=== PATIENT | male | born 1965 | race Caucasian/White ===

== ENCOUNTER 2021-02-09 | Emergency (ER) | payer BC ==
--- NOTE | 2021-02-09 18:06 | ED Physician Documentation ---
History of Present Illness - Stated complaint Stated Complaint: RASH - Chief complaint Chief Complaint: General - Additonal information Additional information: 55-year-old male presents emergency department for evaluation of a rash on his left lower bicep dorsum of the arm that began 5 days ago. This was preceded by a dog scratch about 10 days ago. He reports that he thought nothing of the dog scratch but then 5 days ago he began noticing tiny little red bumps developing around the scratch. He has some pruritus associated with this. He has placed Neosporin ointment without relief of the rash. It is not painful it is nonvesicular. There are some areas of the rash which have begun to crust and scab over. Review of Systems Constitutional: reports: Reviewed and negative Eyes: reports: Reviewed and negative Ears: reports: Reviewed and negative Nose: reports: Reviewed and negative Throat: reports: Reviewed and negative Cardiac: reports: Reviewed and negative Respiratory: reports: Reviewed and negative GI: reports: Reviewed and negative : reports: Reviewed and negative Skin: reports: Rash (left lower bicep/AC) Musculoskeletal: reports: Reviewed and negative Neurologic: denies: Generalized weakness, Focal weakness, Numbness, Difficulty speaking, Near syncope, Syncope, Seizure, Confused, Altered mental status, Unresponsive, Headache, Head injury, LOC, Reviewed and negative, Other Psychiatric: reports: Reviewed and negative Endocrine: reports: Reviewed and negative PD PAST MEDICAL HISTORY - Past Medical History Past Medical History: Yes Cardiovascular: None Respiratory: None Neuro: None Endocrine/Autoimmune: None GI: None : None HEENT: None Psych: None Musculoskeletal: None Derm: None - Past Surgical History Past Surgical History: No - Present Medications Home Medications: Ambulatory Orders Medication Instructions Recorded Confirmed cephALEXin [Keflex] 500 mg PO Q6H #28 02/09/21 - Allergies Allergies/Adverse Reactions: Allergies Allergy/AdvReac Type Severity Reaction Status Date / Time iodine Allergy Hives Verified 02/09/21 17:09 - Social History Does the pt smoke?: No Smoking Status: Never smoker Does the pt drink ETOH?: No Does the pt have substance abuse?: Yes - Immunizations Immunizations are current?: Yes - POLST Patient has POLST: No PD ED PE EXPANDED - General General: Alert, No acute distress - Extremities Extremities: Other (healing dog dractch 4 cm left lower bicep. Surrounded by multiple small papules, non vesicular that are centered on hair follicles. Some sores are scabbing over ) Results - Vitals Vitals: Vital Signs - 24 hr 02/09/21 17:05 Temperature 36.6 C Heart Rate 75 Respiratory 15 Rate Blood Pressure 139/93 H O2 Saturation 99 Oxygen O2 Source Room air PD MEDICAL DECISION MAKING - ED course Complexity details: reviewed results, re-evaluated patient, d/w patient ED course: 55-year-old male presents the emergency department for evaluation of a rash on his left lower bicep that began 5 days ago. It is papular and in some areas of scabbing over. Rash is not consistent with a shingles reaction. In addition to that he does have Zoster vaccine up-to-date. Given that this rash developed about a week after a dog scratch I do suspect that he may have a early or atypi eugene presentation for impetigo. The rash has failed to improve with typical outpatient treatment for impetigo such as Neosporin. Therefore I will start him on a short course of cephalexin. He is to return to the emergency department if his symptoms are worsening. Also recommend continuation of the Neosporin as well as warm compress. Departure - Departure Disposition: 01 Home, Self Care Clinical Impression: Rash, Impetigo Condition: Stable Record reviewed to determine appropriate education?: Yes Prescriptions: cephALEXin [Keflex] 500 mg PO Q6H #28 Comments: Kvng you were seen in the emergency department today for a rash on your left bicep. As we discussed I am not certain that the rash is fungal but because it developed after your dog scratched you I am concerned that it may be a bacterial infection or an atypical presentation for impetigo. Please fill the prescription for the antibiotics and begin taking as directed. I would like you to continue to place the antibiotic ointment over this rash as well as a warm compress 3 times a day. With a bacterial skin infection I would expect the rash to be improving over the next 48 to 72 hours. If worsening then please return immediately to the emergency department for a second evaluation.
== END 2021-02-09 18:27 | disposition home or self-care (01) ==
CPT/HCPCS: 99282; 99283

== ENCOUNTER 2021-04-28 11:38 | Outpatient (CLI) | payer BC | END 2021-04-28 11:39 | disposition short-term general hospital (02) | LOC: EMS 11:38 | DX: R42 Dizziness and giddiness (principal); R06.02 Shortness of breath | CPT/HCPCS: A0425; A0427 ==

== ENCOUNTER 2023-04-24 18:32 | Emergency (ER) | payer BC ==
[2023-04-24 18:40] VITALS: BP 125/87
--- NOTE | 2023-04-24 19:52 | ED Physician Documentation ---
PD HPI SKIN - Stated complaint Stated Complaint: ITCHY/BUMPS ON JAW - Chief complaint Chief Complaint: Wound - History obtained from History obtained from: Patient - Additional information Additional information: 57-year-old male presents for rash on his left jaw. He states that he had a shave biopsy of a lesion performed earlier this week. He noticed some itching and stinging in the area as well as some blistering lesions. He has tried placing Neosporin on the wound but it does not appear to be getting better and so he presented for evaluation. Denies fevers, chills, other complaints Review of Systems Constitutional: denies: Fever, Chills Skin: reports: Rash. denies: Lesions PD PAST MEDICAL HISTORY - Past Medical History Cardiovascular: None Respiratory: None Neuro: None Endocrine/Autoimmune: None GI: None : None HEENT: None Psych: None Musculoskeletal: None Derm: None - Past Surgical History Past Surgical History: No - Present Medications Home Medications: Ambulatory Orders Medication Instructions Recorded Confirmed Mupirocin 2% Oint [Bactroban 2% 1 applic TOP TID 5 Days #22 gm 04/24/23 Oint] - Allergies Allergies/Adverse Reactions: Allergies Allergy/AdvReac Type Severity Reaction Status Date / Time iodine Allergy Hives Verified 04/24/23 18:37 - Social History Does the pt smoke?: No Smoking Status: Never smoker Does the pt drink ETOH?: No Does the pt have substance abuse?: Yes - Immunizations Immunizations are current?: Yes - POLST Patient has POLST: No PD ED PE NORMAL - Vitals Vital signs reviewed: Yes - General General: Alert and oriented X 3, No acute distress, Well developed/nourished - HEENT HEENT: Atraumatic - Neck Neck: Supple, no meningeal sign - Cardiac Cardiac: RRR, Strong equal pulses - Respiratory Respiratory: No respiratory distress - Abdomen Abdomen: Soft, Non tender, Non distended - Derm Derm: Normal color, Warm and dry, Other (small honey-crust rash on L mandible) - Extremities Extremities: No deformity, No tenderness to palpate, Normal ROM s pain, No edema Results - Vitals Vitals: Vital Signs - 24 hr 04/24/23 18:38 Temperature 37.1 C Heart Rate 69 Respiratory 16 Rate Blood Pressure 125/87 H O2 Saturation 97 Oxygen O2 Source Room air PD Medical Decision Making - ED course ED course: Honey crusting appearing lesion on jaw after he had a shave biopsy in that exact same site just several days prior. Appears similar to impetigo. No evidence of underlying cellulitis. Patient was counseled to avoid shaving for the next 5 to 7 days while he treats this area with topical antibiotics. He was counseled to return if he does not improve in 48 hours of antibiotic therapy or if the site worsens. Departure - Departure Disposition: 01 Home, Self Care Condition: Stable Instructions: Impetigo Prescriptions: Mupirocin 2% Oint [Bactroban 2% Oint] 1 applic TOP TID 5 Days #22 gm Comments: AVOID SHAVING OR AGGRAVATING THE AREA WHILE YOU ARE TAKING ANTIBIOTICS Forms: PCP List Discharge Date/Time: 04/24/23 19:54
== END 2023-04-24 19:54 | disposition home or self-care (01) ==
LOC: ED 18:32
DX: R21 Rash and other nonspecific skin eruption (principal)
CPT/HCPCS: 99282; 99283

== ENCOUNTER 2023-06-11 08:37 | Outpatient (CLI) | payer BC ==
[2023-06-11 12:41] LABS: HCT - HEMATOCRIT 45.1 % (42.0-52.0); HGB - HEMOGLOBIN 14.6 g/dL (14.0-18.0); MEAN CORPUSCULAR HGB CONC 32.4 g/dL (32.0-36.0); MEAN CORPUSCULAR VOLUME 92.8 fL (80.0-94.0); MEAN PLATELET VOLUME 10.5 fL (7.4-11.4); RED BLOOD COUNT 4.86 10^6/uL (4.70-6.10); RED CELL DISTRIBUTION WIDTH 13.4 % (12.0-15.0); WHITE BLOOD COUNT 5.9 x10^3/uL (4.8-10.8)
[2023-06-11 13:13] LABS: ALBUMIN 4.4 g/dL (3.2-5.5); ALBUMIN/GLOBULIN RATIO 1.8 (1.0-2.2); ALKALINE PHOSPHATASE 46 IU/L (42-121); ALT ALANINE AMINOTRANSFERASE 22 IU/L (10-60); AST ASPARTATE AMINOTRANSFERASE 22 IU/L (10-42); BILIRUBIN,TOTAL 0.8 mg/dL (0.2-1.0); BUN - BLOOD UREA NITROGEN 16 mg/dL (6-20); CALCIUM 9.2 mg/dL (8.5-10.3); CARBON DIOXIDE - CO2 27 mmol/L (21-32); CHLORIDE 107 mmol/L (101-111); CHOL/HDL RATIO 3.5 (<5.0); CHOLESTEROL 191 mg/dL; CREATININE 0.8 mg/dL (0.6-1.3); GFR - MDRD 99 (>89); GLUCOSE 98 mg/dL (74-104); HDL CHOLESTEROL 54 mg/dL; LDL CHOLESTEROL,CALCULATED 113 mg/dL; LDL/HDL RATIO 2.1 (<3.6); SODIUM 140 mmol/L (135-145); TOTAL PROTEIN 6.8 g/dL (6.4-8.9); TRIGLYCERIDES 119 mg/dL (48-352); VLDL CHOLESTEROL 24 mg/dL
[2023-06-11 13:23] LABS: ESTIMATED AVERAGE GLUCOSE 117 mg/dL (70-100); HEMOGLOBIN A1c% 5.7 % (4.27-6.07)
== END 2023-06-11 08:38 | disposition home or self-care (01) ==
LOC: LAB.N 08:37
PROVIDERS: ATTEND Family Medicine
DX: E78.5 Hyperlipidemia, unspecified (principal); Z13.6 Encounter for screening for cardiovascular disorders; Z12.5 Encounter for screening for malignant neoplasm of prostate
CPT/HCPCS: 36415; 80053; 80061; 81599; 82172; 83036; 83721; 84153; 85027